=== PATIENT | male | born 1970 | race Caucasian/White ===

== ENCOUNTER → 2017-08-18 | Outpatient (CLI) | payer OTHER ==
[2017-08-18 15:05] LABS: ALBUMIN 4.4 gm/dl (3.4-5.0); ALKALINE PHOSPHATASE 82 U/L (45-117); ALT/SGPT 50 U/L (12-78); AST/SGOT 29 U/L (15-37); BLOOD UREA NITROGEN 12 mg/dl (7-18); CALCIUM 9.1 mg/dl (8.5-10.1); CARBON DIOXIDE 27 mmol/L (21-32); CHOLESTEROL 114 mg/dl (0-200); CREATININE 1.08 mg/dl (0.60-1.40); GLUCOSE 100 mg/dl (70-99); SODIUM 139 mmol/L (136-145)
[2017-08-18 15:07] LABS: TOTAL PROTEIN 7.5 gm/dl (6.4-8.2)
[2017-08-18 15:12] LABS: LDL CHOLESTEROL CALCULATED 39 mg/dl
== END | disposition home or self-care (01) ==
LOC: C.LABBC 11:02
PROVIDERS: ATTEND Physician Assistant Medical
DX: I10 Essential (primary) hypertension (principal); F41.8 Other specified anxiety disorders; E78.5 Hyperlipidemia, unspecified